=== PATIENT | female | born 1970 | race Caucasian/White ===

== ENCOUNTER → 2016-09-29 | Outpatient (CLI) | payer BC ==
[~2016-09-29] MED LIST: LISI-729 PO; PANT40TA PO; SERT50TA PO; TRAZ50TA35 PO
--- NOTE | 2016-09-29 15:48 | MAMMOGRAPHY REPORT ---
BILATERAL DIGITAL SCREENING MAMMOGRAM TOMOSYNTHESIS WITH CAD: 09/29/2016 CLINICAL HISTORY: Routine screening. Patient has no complaints. TECHNIQUE: Breast tomosynthesis in addition to standard 2D mammography was performed. Current study was also evaluated with a Computer Aided Detection (CAD) system. COMPARISON: Comparison is made to exams dated: 02/19/2014 mammogram and 02/13/2013 mammogram - [facility]. BREAST COMPOSITION: The tissue of both breasts is heterogeneously dense, which may obscure small ma sses. FINDINGS: No suspicious masses, calcifications, or areas of architectural distortion are noted in e ither breast. There has been no significant interval change compared to prior exams. IMPRESSION: ACR BI-RADS CATEGORY 1: NEGATIVE There is no mammographic evidence of malignancy. A 1 year screening mammogram is recommended. The p atient will receive written notification of the results. Approximately 10% of breast cancers are not detected with mammography. A negative mammographic repor t should not delay biopsy if a clinically suggestive mass is present. Valeria Oshea M.D. ah/:09/29/2016 15:25:22 Vp Care Management: Stephanie Stewart RT(R)(M), [facility] letter sent: Normal 1/2 BI-RADS Code: ACR BI-RADS Category 1: Negative
== END | disposition home or self-care (01) ==
LOC: C.MAMM 14:52
PROVIDERS: ATTEND Obstetrics & Gynecology
DX: Z12.31 Encounter for screening mammogram for malignant neoplasm of breast (principal)

== ENCOUNTER → 2016-10-19 | Outpatient (CLI) | payer BC ==
--- NOTE | 2016-10-19 15:26 | DIAGNOSTIC IMAGING REPORT ---
CERVICAL SPINE 3 VIEWS CLINICAL HISTORY: Neck pain. FINDINGS: AP, lateral, and odontoid views of the cervical spine are obtained. No prior studies are available for comparison at the time of dictation. The skeletal structures are well mineralized. There is no radiographic evidence of fracture or subluxation. The odontoid process and lateral masses appear intact on the open mouth view. The spinolaminar line is preserved. Vertebral body height and alignment are maintained. There is straightening of the cervical lordosis with mild reversal centered at C5. Small anterior osteophytes are seen at C5-C6. The spinous processes appear intact. There is mild age of disc space narrowing at C5-C6 and C6-C7. The remaining intervertebral disc spaces are normal. A small posterior disc osteophyte complex at C5-C6 may contribute to mild acquired compromise of the central canal. The prevertebral soft tissues are within normal limits. Visualized apical lung parenchyma appears clear. IMPRESSION: 1. There is no acute bony abnormality seen involving the cervical spine. 2. Mild spondylotic change as above, greatest at C5-C6. Electronically signed by: Solomon Rosas M.D. 10/19/2016 3:24 PM Dictated Date/Time: 10/19/2016 3:22 PM
--- NOTE | 2016-10-19 15:28 | DIAGNOSTIC IMAGING REPORT ---
L-SPINE MIN 4 VIEWS ROUTINE CLINICAL HISTORY: Low back pain. Leg numbness. COMPARISON: None FINDINGS: There are cholecystectomy clips. No acute fracture is identified. A transitional vertebra is noted at the lumbosacral junction which is designated as L5 on this exam. When utilizing this numbering scheme, there is a left-sided rudimentary rib at the T12 level. There are 6 lumbar type vertebra. Sacroiliac joints are intact. There is mild levoscoliosis at the lumbosacral junction. There is mild disc space narrowing at L5-S1. IMPRESSION: 1. Mild multilevel degenerative disc disease of the lumbar spine. 2. Transitional vertebra at the lumbosacral junction which is designated as L5 on this exam. Please see above numbering scheme the lumbar spine. 3. Mild levoscoliosis at the lumbosacral junction. 4. No acute fracture. Electronically signed by: Eduardo Courtney M.D. 10/19/2016 3:27 PM Dictated Date/Time: 10/19/2016 3:24 PM
[2016-10-19 16:46] LABS: BASO % 0.4 %; BASO ABS # 0.03 K/uL (0-0.2); COMPLETE YES; EOS % 1.2 %; HEMATOCRIT 35.4 % (37-47); IG% 0.1 %; LYMPH % 38.7 %; LYMPH ABS # 2.95 K/uL (1.2-3.4); MEAN CELL VOLUME 88.5 fL (80-100); MEAN PLATELET VOLUME 9.9 fL (7.4-10.4); MONO % 5.8 %; NEUT % 53.8 %; PLATELET COUNT 266 K/uL (130-400); WHITE BLOOD COUNT 7.62 K/uL (4.8-10.8)
[2016-10-19 16:58] LABS: BLOOD UREA NITROGEN 14 mg/dl (7-18); BUN/CREATININE RATIO 18.7 (10-20); CARBON DIOXIDE 24 mmol/L (21-32); CHLORIDE 106 mmol/L (98-107); CREATININE 0.75 mg/dl (0.60-1.20); GLUCOSE 86 mg/dl (70-99); POTASSIUM 3.7 mmol/L (3.5-5.1); SODIUM 140 mmol/L (136-145)
[2016-10-19 17:08] LABS: THYROID STIMULATING HORMONE 0.914 uIu/ml (0.300-4.500)
[2016-10-19 20:37] LABS: LYME DISEASE AB IGG NEG (NEG); LYME DISEASE AB IGM NEG (NEG)
--- NOTE | 2016-10-24 05:53 | CODING QUERY MEDICAL NECESSITY ---
SUPPORTING DIAGNOSIS NEEDED A supporting diagnosis is required for the test/procedure performed on this patient in order for us to be reimbursed by the patient's insurance. Please provide a supporting diagnosis for the following test/procedure listed below next to the test name along with your signature. *If there is no additional diagnosis for this patient that would support the following test/procedure please document that below next to the test/procedure DATE OF SERVICE: 10/19/16 Test(s)/Procedure(s) that require a supporting diagnosis: * VITAMIN D 25 HYDROXY DIAGNOSIS: Provider Signature: Date: [facility] you [facility] Once completed, please kindly fax back to [phone] For questions please call [phone]
== END | disposition home or self-care (01) ==
LOC: C.RAD1850 14:50
PROVIDERS: ATTEND Family Medicine
DX: M51.36 Other intervertebral disc degeneration, lumbar region (principal); M47.812 Spondylosis without myelopathy or radiculopathy, cervical region; I10 Essential (primary) hypertension; R20.2 Paresthesia of skin

== ENCOUNTER 2017-03-01 09:30 | Emergency (ER) | payer BC ==
[~2017-03-01] VITALS: Ht 160 cm; Wt 64.8 kg
[2017-03-01 09:34] VITALS: TEMP 36.6; Ht 160 cm; Wt 64.8 kg
[2017-03-01] MEDS ORDERED: ONDANSETRON INJ 2 MG/ML 2 ML VIAL IV STA (10:35)
[2017-03-01] MEDS ORDERED: SODIUM CHLORIDE 0.9% 1000ML 1,000 ML IV STA (10:35)
[2017-03-01] MEDS ORDERED: HYDROmorphone INJ 1 MG/ML SYR IV STA (10:35)
--- NOTE | 2017-03-01 10:44 | EMERGENCY ROOM VISIT NOTE ---
History Report prepared by Pooja: Shanenn Wheat Under the Supervision of: Dr. Ashley Mishra M.D. First contact with patient: 10:13 Chief Complaint: PAIN (GENERALIZED) Stated Complaint: SEVERE PELVIC PAIN/PRESSURE, CHEST PAIN History of Present Illness The patient is a 46 year old female who presents to the Emergency Room with complaints of constant pelvic pain and pressure beginning 2 weeks ago. The patient states that she has been having pelvic pain and pressure that is worse on the right side. She notes that when it started she had her period and thought that her pain could be cramping from her menstrual cycle. She reports that after her period ended her symptoms persisted. The patient complains of a weight gain of 2 pounds in 3 days and she notes that she has not been eating much. She notes that she has had bloating and chest pain that began this morning. She also states that she has been having pain and bleeding with intercourse that is new. She denies any urinary symptoms, fever, diarrhea, vaginal discharge, and bloody stools. The patient states that she has not had a bowel movement today. She reports that she took ibuprofen this morning. She notes that she has an appointment with her OBGYN tomorrow. Source of History: patient Onset: 2 weeks ago Position: pelvis Quality: pressure Timing: constant Associated Symptoms: + chest pain, No fevers, No diarrhea, No urinary symptoms Note: Pt complains of vaginal bleeding and pain with intercourse and bloating. She denies any bloody stools. Review of Systems See HPI for pertinent positives & negatives. A total of 10 systems reviewed and were otherwise negative. Past Medical & Surgical Medical Problems: (1) ACL surgery (2) Bronchitis (3) Cyst - pilonidal (4) Depression (5) Pneumonia Family History Cancer Hypertension Social History Smoking Status: Never Smoker Alcohol Use: occasionally Marital Status: Housing Status: lives with family Occupation Status: employed Current/Historical Medications Scheduled Lisinopril (Zestril), 5 MG PO DAILY Pantoprazole (Protonix), 40 MG PO DAILY Sertraline (Zoloft), 50 MG PO DAILY Scheduled PRN Trazodone Hcl (Trazodone), 25 MG PO HS PRN for Sleep Allergies Coded Allergies: Sulfa Drugs (Verified Allergy, Severe, TONGUE SWELLING, 03/01/17) Amoxicillin (Verified Adverse Reaction, Severe, GI SYMPTOMS - C DIFF, ) CAUSED C DIFF Clavulanic Acid (Verified Adverse Reaction, Intermediate, GI SYMPTOMS - C DIFF, 03/01/17) CAUSED C DIFF Erythromycin (Verified Adverse Reaction, Intermediate, STOMACH PAINS VOMITING, 03/01/17) Physical Exam Vital Signs Date Time Temp Pulse Resp B/P (MAP) Pulse Ox O2 Delivery O2 Flow Rate FiO2 03/01/17 14:30 67 16 137/96 96 Room Air 03/01/17 13:25 60 16 125/74 03/01/17 11:48 58 16 136/90 99 Room Air 03/01/17 09:34 36.6 65 18 155/91 100 Room Air Physical Exam Vital signs reviewed. General: Well-appearing, in no significant distress. HEENT: No scleral icterus, PERRLA, neck supple. Atraumatic. Cardiovascular: Regular rate and rhythm, no extra sounds. Pulmonary: Clear to auscultation bilaterally, normal work of breathing. Abdomen: Soft, lower abdominal tenderness, no rebound or guarding, nondistended , positive bowel sounds. Pelvic: Deferred Musculoskeletal: Atraumatic, no peripheral edema. Neurologic: Patient awake alert and oriented x 3. Skin: Warm, dry, no rash Medical Decision & Procedures ER Provider Diagnostic Interpretation: Radiology results as stated below per my review and radiologist interpretation: ULTRASOUND OF THE PELVIS FINDINGS: Uterus: The uterus is normal in size and echotexture, measuring 9.0 x 5.2 x 6.3 cm. Tiny nabothian cysts are noted in the cervix. Endometrium: The endometrium is normal in appearance, and the endometrial stripe is normal in thickness measuring up to 0.9 cm. Ovaries: The ovaries are normal in size and morphology. The right ovary measures 6.0 x 3.2 x 4.2 cm and the left ovary measures 3.8 x 2.8 x 2.7 cm. There are 2 dominant follicles in the right ovary measuring up to 3.3 cm. Additional follicles are seen in the left ovary. Normal Doppler waveforms are shown within both ovaries. Pelvis: There is no free fluid in the cul-de-sac. No concerning adnexal lesion is seen. IMPRESSION: 1. No acute sonographic abnormality is identified in the pelvis. 2. There are 2 dominant follicles in the right ovary measuring up to 3.3 cm. Electronically signed by: Solomon Rosas M.D. 03/01/2017 1:30 PM Dictated Date/Time: 03/01/2017 1:[address] SCAN OF THE ABDOMEN AND PELVIS WITH IV CONTRAST FINDINGS: Lung bases: The heart is normal in size and without pericardial effusion. The lung bases are clear. Liver: The contrast-enhanced liver is normal in size, contour, and attenuation. There is mild central intrahepatic biliary ductal dilatation. The hepatic veins and portal veins are patent. Gallbladder: Surgically absent noting clips in the gallbladder fossa. Spleen: Normal in size and attenuation. Pancreas: Unremarkable. Adrenal glands: Unremarkable. Kidneys: The contrast enhanced kidneys are normal in size and without hydronephrosis. The kidneys enhance symmetrically. Abdominal vasculature: The abdominal aorta is normal in course and caliber. Bowel: The small bowel and colon are normal in course and caliber. There is moderate colonic fecal retention. The appendix is well-visualized and normal. Peritoneum: There is no intraperitoneal free air or abdominal ascites. There is a small fat-containing umbilical hernia. Lymphadenopathy: None. Pelvic viscera: The bladder is decompressed and grossly unremarkable. The uterus and and adnexa are normal as visualized. Dominant follicles are identified in the right ovary and measure up to 3.4 cm. There is trace free fluid in the cul-de-sac. Skeletal structures: Sclerotic change is noted in the sacroiliac joints and pubic symphysis. Scattered bone islands are seen in the pelvis. No lytic or blastic lesions are seen. There is a right-sided pars defect at L5. IMPRESSION: 1. There are no acute infectious or inflammatory findings in the abdomen or pelvis. 2. Moderate constipation. No bowel obstruction is seen. 3. Dominant follicles are identified in the right ovary. These were better characterized on today's pelvic ultrasound. 4. There is trace and likely physiologic free fluid in the cul-de-sac. Electronically signed by: Solomon Rosas M.D. 03/01/2017 2:19 PM Dictated Date/Time: 03/01/2017 2:14 PM Laboratory Results 03/01/17 09:50 Red Blood Count 4.28, Mean Corpuscular Volume 89.3, Mean Corpuscular Hemoglobin 28.7, Mean Corpuscular Hemoglobin Concent 32.2, Mean Platelet Volume 9.8, Neutrophils (%) (Auto) 51.6, Lymphocytes (%) (Auto) 38.1, Monocytes (%) (Auto) 7.8, Eosinophils (%) (Auto) 1.8, Basophils (%) (Auto) 0.5, Neutrophils # (Auto) 3.36, Lymphocytes # (Auto) 2.48, Monocytes # (Auto) 0.51, Eosinophils # (Auto) 0.12, Basophils # (Auto) 0.03 03/01/17 09:50 Test 03/01/17 09:50 03/01/17 10:50 White Blood Count 6.51 K/uL (4.8-10.8) Red Blood Count 4.28 M/uL (4.2-5.4) Hemoglobin 12.3 g/dL (12.0-16.0) Hematocrit 38.2 % (37-47) Mean Corpuscular Volume 89.3 fL (80-100) Mean Corpuscular Hemoglobin 28.7 pg (25-34) Mean Corpuscular Hemoglobin Concent 32.2 g/dl (32-36) Platelet Count 312 K/uL (130-400) Mean Platelet Volume 9.8 fL (7.4-10.4) Neutrophils (%) (Auto) 51.6 % Lymphocytes (%) (Auto) 38.1 % Monocytes (%) (Auto) 7.8 % Eosinophils (%) (Auto) 1.8 % Basophils (%) (Auto) 0.5 % Neutrophils # (Auto) 3.36 K/uL (1.4-6.5) Lymphocytes # (Auto) 2.48 K/uL (1.2-3.4) Monocytes # (Auto) 0.51 K/uL (0.11-0.59) Eosinophils # (Auto) 0.12 K/uL (0-0.5) Basophils # (Auto) 0.03 K/uL (0-0.2) RDW Standard Deviation 40.4 fL (36.4-46.3) RDW Coefficient of Variation 12.5 % (11.5-14.5) Immature Granulocyte % (Auto) 0.2 % Immature Granulocyte # (Auto) 0.01 K/uL (0.00-0.02) Anion Gap 6.0 mmol/L (3-11) Est Creatinine Clear Calc Drug Dose 84.2 ml/min Estimated GFR () 111.0 Estimated GFR (Non- 95.8 BUN/Creatinine Ratio 23.2 (10-20) Calcium Level 8.6 mg/dl (8.5-10.1) Total Bilirubin 0.3 mg/dl (0.2-1) Direct Bilirubin 0.1 mg/dl (0-0.2) Aspartate Amino Transf (AST/SGOT) 27 U/L (15-37) Alanine Aminotransferase (ALT/SGPT) 32 U/L (12-78) Alkaline Phosphatase 48 U/L (45-117) Total Protein 7.4 gm/dl (6.4-8.2) Albumin 3.9 gm/dl (3.4-5.0) Lipase 206 U/L (73-393) Urine Color YELLOW Urine Appearance CLEAR (CLEAR) Urine pH 6.0 (4.5-7.5) Urine Specific [place] 1.009 (1.000-1.030) Urine Protein NEG (NEG) Urine Glucose (UA) NEG (NEG) Urine Ketones NEG (NEG) Urine Occult Blood TRACE (NEG) Urine Nitrite NEG (NEG) Urine Bilirubin NEG (NEG) Urine Urobilinogen NEG (NEG) Urine Leukocyte Esterase NEG (NEG) Urine WBC (Auto) 0 /hpf (0-5) Urine RBC (Auto) 0-4 /hpf (0-4) Urine Hyaline Casts (Auto) 0 /lpf (0-5) Urine Epithelial Cells (Auto) 0-5 /lpf (0-5) Urine Bacteria (Auto) NEG (NEG) Laboratory results per my review. Medications Administered Medications (Trade) Dose Ordered Sig/Nithya Route Start Time Stop Time Status Last Admin Dose Admin Sodium Chloride 1,000 ml @ 125 mls/hr Q8H STAT IV 03/01/17 10:35 03/01/17 15:16 DC 03/01/17 10:46 125 MLS/HR Hydromorphone HCl (Dilaudid Inj) 1 mg NOW STAT IV 03/01/17 10:35 03/01/17 10:40 DC 03/01/17 10:46 1 MG Ondansetron HCl (Zofran Inj) 4 mg NOW STAT IV 03/01/17 10:35 03/01/17 10:40 DC 03/01/17 10:46 4 MG ED Course 1013: Past medical records reviewed. The patient was evaluated in room B11. A complete history and physical examination was performed. 1035: Zofran Inj 4mg IV, Dilaudid 1mg IV, Sodium Chloride 1000 ml @ 125 mls/hr IV. 1444: I reevaluated and updated the patient. She declined a pelvic exam because she sees Dr. Franz tomorrow. 1448: Upon reevaluation, the patient appeared to have improvement of her symptoms. I discussed findings with the patient. She verbalized agreement of the treatment plan. The patient was discharged home. Medical Decision Differential diagnosis includes ovarian cyst, ovarian torsion, ectopic , endometrial hypoplasia, malignancy, appendicitis, diverticulitis. Medication Reconciliation: I attest that I have personally reviewed the patient' s current medication list. Blood Pressure Screening: Patient was found to have a slightly elevated blood pressure and this is known. She follows this with her PCP. This pt was evaluated and appeared to be in no distress. IV access was obtained and lab work was drawn. Pt was hydrated with NSS, given IV dilaudid and zofran. US pelvis was performed and reveals some dominant ovarian follicles , not acute abnl. CT abd and pelvis is significant for moderate constipation, no acute infectious or inflammatory abnl. UA is negative. Pt was offered a pelvic exam, but deferred as she has an appt with OBGYN tomorrow. She was d/c, asked to use ibuprofen and prn norco for pain. Pt was advised not to drive or take tylenol with this medication. She will return to the ED for worsening of symptoms or any medical concerns. Impression Primary Impression: Pelvic pain Additional Impression: Constipation Scribe Attestation The scribe's documentation has been prepared under my direction and personally reviewed by me in its entirety. I confirm that the note above accurately reflects all work, treatment, procedures, and medical decision making performed by me. Departure Information Dispostion Home / Self-Care Referrals Nicole Paris DO (PCP) Forms HOME CARE DOCUMENTATION FORM, IMPORTANT VISIT INFORMATION, WORK / SCHOOL INSTRUCTIONS Patient Instructions [facility] Additional Instructions Diagnosis: Pelvic pain, constipation MiraLAX 1 capful daily for constipation. Increase the fiber and water in your diet. Follow-up with Dr. Franz of [facility] tomorrow as scheduled. Follow-up with her primary care physician for reevaluation and consideration of gastroenterology follow-up. Return to the ER for worsening of symptoms or any medical concerns. Problem Qualifiers
[2017-03-01 10:59] LABS: URINE APPEARANCE CLEAR (CLEAR); URINE BILIRUBIN NEG (NEG); URINE COLOR YELLOW; URINE EPITHELIAL CELL AUTO 0-5 /lpf (0-5); URINE NITRITE NEG (NEG); URINE SPECIFIC GRAVITY 1.009 (1.000-1.030); UROBILINOGEN NEG (NEG); ZZUR CULT IF INDIC CLEAN CATCH NO
[2017-03-01 11:11] LABS: MANUAL MICROSCOPIC REQUIRED? NO; REVIEW REQ? NO
[2017-03-01 11:42] LABS: BASO % 0.5 %; BASO ABS # 0.03 K/uL (0-0.2); COMPLETE YES; EOS % 1.8 %; HEMATOCRIT 38.2 % (37-47); IG% 0.2 %; LYMPH % 38.1 %; LYMPH ABS # 2.48 K/uL (1.2-3.4); MEAN CELL VOLUME 89.3 fL (80-100); MEAN CORPUSCULAR HEMOGLOBIN 28.7 pg (25-34); MEAN CORPUSCULAR HGB CONC 32.2 g/dl (32-36); MEAN PLATELET VOLUME 9.8 fL (7.4-10.4); MONO % 7.8 %; NEUT % 51.6 %; PLATELET COUNT 312 K/uL (130-400); RED BLOOD COUNT 4.28 M/uL (4.2-5.4); WHITE BLOOD COUNT 6.51 K/uL (4.8-10.8)
[2017-03-01 11:48] LABS: BUN/CREATININE RATIO 23.2 (10-20); CALCIUM 8.6 mg/dl (8.5-10.1); CREATININE 0.74 mg/dl (0.60-1.20)
--- NOTE | 2017-03-01 13:31 | DIAGNOSTIC IMAGING REPORT ---
ULTRASOUND OF THE PELVIS CLINICAL HISTORY: Pelvic bloating. Dysfunctional bleeding. COMPARISON STUDY: Pelvic CT dated 12/10/2012. TECHNIQUE: Real-time, grayscale, and color flow sonography of the pelvis is performed both transabdominally and endovaginally. Images are reviewed in the transverse and longitudinal planes. FINDINGS: Uterus: The uterus is normal in size and echotexture, measuring 9.0 x 5.2 x 6.3 cm. Tiny nabothian cysts are noted in the cervix. Endometrium: The endometrium is normal in appearance, and the endometrial stripe is normal in thickness measuring up to 0.9 cm. Ovaries: The ovaries are normal in size and morphology. The right ovary measures 6.0 x 3.2 x 4.2 cm and the left ovary measures 3.8 x 2.8 x 2.7 cm. There are 2 dominant follicles in the right ovary measuring up to 3.3 cm. Additional follicles are seen in the left ovary. Normal Doppler waveforms are shown within both ovaries. Pelvis: There is no free fluid in the cul-de-sac. No concerning adnexal lesion is seen. IMPRESSION: 1. No acute sonographic abnormality is identified in the pelvis. 2. There are 2 dominant follicles in the right ovary measuring up to 3.3 cm. Electronically signed by: Solomon Rosas M.D. 03/01/2017 1:30 PM Dictated Date/Time: 03/01/2017 1:29 PM
--- NOTE | 2017-03-01 14:20 | DIAGNOSTIC IMAGING REPORT ---
CT SCAN OF THE ABDOMEN AND PELVIS WITH IV CONTRAST CLINICAL HISTORY: Generalized abdominal pain. Bloating. Pelvic pressure. COMPARISON STUDY: Abdominal CT dated 12/10/2012. Pelvic ultrasound dated 03/01/2017. TECHNIQUE: Following the IV administration of 118 cc of Optiray 320, CT scan of the abdomen and pelvis is performed from the lung bases to the proximal femora. Images are reviewed in the axial, sagittal, and coronal planes. IV contrast was administered without complication. Automated dose control exposure was utilized. CT DOSE: 305.38 mGy.cm FINDINGS: Lung bases: The heart is normal in size and without pericardial effusion. The lung bases are clear. Liver: The contrast-enhanced liver is normal in size, contour, and attenuation. There is mild central intrahepatic biliary ductal dilatation. The hepatic veins and portal veins are patent. Gallbladder: Surgically absent noting clips in the gallbladder fossa. Spleen: Normal in size and attenuation. Pancreas: Unremarkable. Adrenal glands: Unremarkable. Kidneys: The contrast enhanced kidneys are normal in size and without hydronephrosis. The kidneys enhance symmetrically. Abdominal vasculature: The abdominal aorta is normal in course and caliber. Bowel: The small bowel and colon are normal in course and caliber. There is moderate colonic fecal retention. The appendix is well-visualized and normal. Peritoneum: There is no intraperitoneal free air or abdominal ascites. There is a small fat-containing umbilical hernia. Lymphadenopathy: None. Pelvic viscera: The bladder is decompressed and grossly unremarkable. The uterus and and adnexa are normal as visualized. Dominant follicles are identified in the right ovary and measure up to 3.4 cm. There is trace free fluid in the cul-de-sac. Skeletal structures: Sclerotic change is noted in the sacroiliac joints and pubic symphysis. Scattered bone islands are seen in the pelvis. No lytic or blastic lesions are seen. There is a right-sided pars defect at L5. IMPRESSION: 1. There are no acute infectious or inflammatory findings in the abdomen or pelvis. 2. Moderate constipation. No bowel obstruction is seen. 3. Dominant follicles are identified in the right ovary. These were better characterized on today's pelvic ultrasound. 4. There is trace and likely physiologic free fluid in the cul-de-sac. Electronically signed by: Solomon Rosas M.D. 03/01/2017 2:19 PM Dictated Date/Time: 03/01/2017 2:14 PM
[2017-03-01 14:30] VITALS: BP 137/96; PULSE 67; O2SAT 96
== END 2017-03-01 15:00 | disposition home or self-care (01) ==
LOC: C.EDB 09:31
DX: R10.2 Pelvic and perineal pain (principal); K59.00 Constipation, unspecified; F32.9 Major depressive disorder, single episode, unspecified; Z98.890 Other specified postprocedural states; Z79.899 Other long term (current) drug therapy; Z88.1 Allergy status to other antibiotic agents; Z88.2 Allergy status to sulfonamides; Z88.8 Allergy status to other drugs, medicaments and biological substances; Z80.9 Family history of malignant neoplasm, unspecified; Z82.49 Family history of ischemic heart disease and other diseases of the circulatory system

== ENCOUNTER → 2017-03-02 | Outpatient (CLI) | payer BC | END | disposition home or self-care (01) | LOC: C.PAPS 13:40 | PROVIDERS: ATTEND Obstetrics & Gynecology | DX: Z12.4 Encounter for screening for malignant neoplasm of cervix (principal) ==

== ENCOUNTER → 2017-10-12 | Outpatient (CLI) | payer OTHER ==
[2017-10-12 12:32] LABS: BASO % 0.6 %; BASO ABS # 0.04 K/uL (0-0.2); EOS % 1.2 %; EOS ABS # 0.08 K/uL (0-0.5); HEMATOCRIT 31.7 % (37-47); HEMOGLOBIN 10.6 g/dL (12.0-16.0); IG# 0.01 K/uL (0.00-0.02); LYMPH % 46.1 %; LYMPH ABS # 2.98 K/uL (1.2-3.4); MEAN CELL VOLUME 85.4 fL (80-100); MEAN CORPUSCULAR HEMOGLOBIN 28.6 pg (25-34); MEAN CORPUSCULAR HGB CONC 33.4 g/dl (32-36); MEAN PLATELET VOLUME 10.4 fL (7.4-10.4); MONO ABS # 0.45 K/uL (0.11-0.59); NEUT % 44.9 %; NEUT ABS # 2.91 K/uL (1.4-6.5); PLATELET COUNT 322 K/uL (130-400); RED CELL DISTRIBUTION WIDTH CV 12.7 % (11.5-14.5); RED CELL DISTRIBUTION WIDTH SD 39.3 fL (36.4-46.3); WHITE BLOOD COUNT 6.47 K/uL (4.8-10.8)
[2017-10-12 15:47] LABS: ALBUMIN 3.7 gm/dl (3.4-5.0); ALT/SGPT 22 U/L (12-78); AST/SGOT 15 U/L (15-37); BLOOD UREA NITROGEN 11 mg/dl (7-18); CALCIUM 9.1 mg/dl (8.5-10.1); CARBON DIOXIDE 24 mmol/L (21-32); CREATININE 0.67 mg/dl (0.60-1.20); GLUCOSE 85 mg/dl (70-99); POTASSIUM 3.9 mmol/L (3.5-5.1); SODIUM 139 mmol/L (136-145); TOTAL PROTEIN 7.3 gm/dl (6.4-8.2)
[2017-10-12 15:49] LABS: ALKALINE PHOSPHATASE 46 U/L (45-117)
== END | disposition home or self-care (01) ==
LOC: C.LAB1850 11:29
PROVIDERS: ATTEND Family Medicine
DX: R53.83 Other fatigue (principal); N93.8 Other specified abnormal uterine and vaginal bleeding

== ENCOUNTER → 2017-12-26 | Outpatient (CLI) | payer OTHER ==
--- NOTE | 2017-12-27 14:43 | MAMMOGRAPHY REPORT ---
BILATERAL DIGITAL SCREENING MAMMOGRAM TOMOSYNTHESIS WITH CAD: 12/26/2017 CLINICAL HISTORY: Routine screening. TECHNIQUE: Breast tomosynthesis in addition to standard 2D mammography was performed. Current study was also evaluated with a Computer Aided Detection (CAD) system. COMPARISON: Comparison is made to exams dated: 09/29/2016 mammogram, 02/19/2014 mammogram, 02/13/2013 ma mmogram - [facility], 11/01/2009 mammogram, and 10/30/2008 mammogram. BREAST COMPOSITION: The tissue of both breasts is heterogeneously dense, which may obscure small mas ses. FINDINGS: No suspicious masses, calcifications, or areas of architectural distortion are noted in ei ther breast. There has been no significant interval change compared to prior exams. Asymmetry in the right lateral posterior breast is stable compared to prior exams including the 2013 and 2012 exams. IMPRESSION: ACR BI-RADS CATEGORY 2: BENIGN There is no mammographic evidence of malignancy. A 1 year screening mammogram is recommended. The pa tient will receive written notification of the results. Approximately 10% of breast cancers are not detected with mammography. A negative mammographic report should not delay biopsy if a clinically suggestive mass is present. Valeria Oshea M.D. ah/:12/27/2017 07:34:22 Copy Cutter: Carlos MUNSON(R)([place]), [facility] letter sent: Normal 1/2 BI-RADS Code: ACR BI-RADS Category 2: Benign
== END | disposition home or self-care (01) ==
LOC: C.MAMM 17:18
PROVIDERS: ATTEND Obstetrics & Gynecology
DX: Z12.31 Encounter for screening mammogram for malignant neoplasm of breast (principal)

== ENCOUNTER → 2018-01-21 | Outpatient (CLI) | payer OTHER ==
[~2018-01-21] MED LIST changes: +FERR1TAB23 PO; +MULT-506 PO
[2018-01-21 16:03] LABS: BASO % 0.4 %; BASO ABS # 0.03 K/uL (0-0.2); EOS % 1.9 %; EOS ABS # 0.16 K/uL (0-0.5); HEMATOCRIT 36.3 % (37-47); HEMOGLOBIN 12.5 g/dL (12.0-16.0); IG# 0.02 K/uL (0.00-0.02); LYMPH % 37.7 %; MEAN CELL VOLUME 86.2 fL (80-100); MEAN CORPUSCULAR HEMOGLOBIN 29.7 pg (25-34); MEAN CORPUSCULAR HGB CONC 34.4 g/dl (32-36); MEAN PLATELET VOLUME 9.9 fL (7.4-10.4); MONO % 6.3 %; MONO ABS # 0.53 K/uL (0.11-0.59); NEUT % 53.5 %; NEUT ABS # 4.54 K/uL (1.4-6.5); PLATELET COUNT 272 K/uL (130-400); RED CELL DISTRIBUTION WIDTH CV 14.1 % (11.5-14.5); RED CELL DISTRIBUTION WIDTH SD 44.7 fL (36.4-46.3); WHITE BLOOD COUNT 8.48 K/uL (4.8-10.8)
== END | disposition home or self-care (01) ==
LOC: C.LAB1850 14:37
PROVIDERS: ATTEND Obstetrics & Gynecology
DX: Z01.818 Encounter for other preprocedural examination (principal)

== ENCOUNTER → 2018-01-28 | Day surgery (SDC) | payer OTHER ==
[2018-01-22 14:54] VITALS: Ht 160 cm; Wt 64.1 kg
--- NOTE | 2018-01-25 10:44 | HISTORY & PHYSICAL EXAMINATION ---
DATE OF ADMISSION: 01/28/2018 The patient is for surgery on 01/28/2018. CHIEF COMPLAINT: Heavy menstrual bleeding. HISTORY OF PRESENT ILLNESS: The patient is a 47-year-old white female, 4, para 2-0-2-2. The patient has been having intermittent heavy menses where she changes a tampon every hour. She has been found to be anemic. Due to an elevated blood pressure, she is not a good candidate for combination oral contraceptives. She has tried norethindrone progestin only pills without success. The patient also declines other progestin only contraceptives for treatment. We have discussed her surgical options including hysterectomy. She prefers to avoid hysterectomy if possible. Pap smear was done in February 2017 and this was negative. Ultrasound was done on 09/2017 and this showed a normal size uterus with an endometrial lining of 4.1 mm. Left ovary was normal. She had 2 small simple cysts on her right ovary. ALLERGIES: THE PATIENT IS ALLERGIC TO SULFA MEDICATIONS, ERYTHROMYCIN DERIVATIVES, AND ALSO REPORTS AN ALLERGY TO AUGMENTIN. PAST MEDICAL ILLNESSES: History of anemia. Also, hypertension. In addition, depression. PAST SURGICAL HISTORY: She has undergone laparoscopic cholecystectomy. She has also had an ACL repair. FAMILY HISTORY: Her mother has a history of hypertension and asthma. Her sister has irritable bowel syndrome. SOCIAL HISTORY: The patient is . She denies smoking cigarettes. She does report drinking alcohol on a weekly basis. PHYSICAL EXAMINATION: VITAL SIGNS: The patient is 5 foot 3 inches tall, weighs 143 pounds, her blood pressure is 128/70. HEENT: Grossly within normal limits. NECK: Supple without masses. CHEST: Her lungs are clear without wheezing. HEART: Regular rate and rhythm. No murmurs, gallops, or rubs. ABDOMEN: Soft and nontender with no masses palpated. PELVIC: External genitalia normal. Vagina pink and stimulated. Cervix pink and closed with no lesions visible. Uterus within normal limit size, nontender. Adnexa nontender with no masses palpable. EXTREMITIES: No cyanosis, clubbing, or edema. IMPRESSION: A 47-year-old white female 4, para 2 with history of menorrhagia. PLAN: The patient is for hysteroscopic-guided endometrial ablation by roller ball or NovaSure method with or without dilation and curettage, with or without removal of endometrial polyp/lesion. The patient is aware of the risks of infection, bleeding, perforation of the uterus, failure to improve the bleeding and risks of anesthesia. The patient wishes to proceed with the surgery. MIRANDA
[~2018-01-28] VITALS: Ht 160 cm; Wt 64.1 kg
[~2018-01-28] MED LIST changes: +ATROPINE SULFATE 0.1 MG/ML 5ML SYR IV PRN; +DEXAMETHASONE SOD INJ 4 MG/ML VIAL ONE; +EpHEDrine SULFATE INJ 50 MG/ML AMP IV PRN; +FENTANYL CITRATE INJ 50 MCG/1 ML 2 ML VIAL IV PRN; +FENTANYL CITRATE INJ 50 MCG/1 ML 2 ML VIAL ONE; +IBUPROFEN 600 MG TAB PO PRN; +KETOROLAC TROMETHAMINE 30 MG/ML VIAL ONE; +LACTATED RINGER'S 1000ML 1,000 ML IV SCH; +LIDOCAINE HCL 2% 2 ML VIAL (20MG/ML) ONE; +MIDAZOLAM HCL 1 MG/ML 2ML VIAL ONE; +ONDANSETRON INJ 2 MG/ML 2 ML VIAL IV PRN; +ONDANSETRON INJ 2 MG/ML 2 ML VIAL ONE; +PROPOFOL IV EMULSION 10 MG/ML 20 ML VIAL ONE; +SODIUM CHLORIDE 0.9% 1000ML 1,000 ML IV SCH
--- NOTE | 2018-01-28 08:46 | History & Physical Bridge - SC ---
H&P Re-Evaluation Bridge Note: I have examined the patient, reviewed the History & Physical and in the interval since the performance of the History & Physical I have noted the following changes of clinical significance: No changes noted
--- NOTE | 2018-01-28 09:43 | Discharge Instructions-SurgCtr ---
Discharge Instructions Date of Service January 28, 2018. Visit Reason for Visit: Menorrhagia, Anemia Discharge Discharge Diagnosis / Problem: S/P Hysteroscopy, D&C, Novasure endometrial ablation Discharge Goals Goal(s): Diagnostic testing, Therapeutic intervention Activity Recommendations Activity Limitations: per Instructions/Follow-up section Anesthesia . Post Anesthesia Instructions: If you have had General Anesthesia or IV Sedation: * Do not drive today. * Resume driving when surgeon permits. * Do not make important decisions or sign legal documents today. * Call surgeon for: 1. Temperature elevations greater than 101 degrees F. 2. Uncontrollable pain. 3. Excessive bleeding. 4. Persistent nausea and vomiting. 5. Medication intolerance (nausea, vomiting or rash). * For nausea and vomiting use only clear liquids such as: tea, soda, bouillon until nausea subsides, then gradually increase diet as tolerated. * If you have any concerns or questions, call your surgeon's office. If physician is unavailable and it is an emergency, call 911 or go to the nearest emergency room. . Instructions / Follow-Up Instructions / Follow-Up ACTIVITY RECOMMENDATIONS: * Avoid tampons, douching, hot tubs, pools, and intercourse until bleeding has stopped. * May shower as usual. * No strenuous activity for 24-48 hours. After 24-48 hours, you may do anything you feel like doing (driving and sports are okay). SPECIAL CARE INSTRUCTIONS: Special Diet: * Mild nausea may occur in the immediate post-operative period. * Take clear liquids such as tea, cola or bouillon until all nausea has subsided; you may then resume your normal diet. Special Care: * Light bleeding and vaginal spotting can last from a few days to 4 or more weeks. Call your doctor if bleeding becomes heavier than the heaviest part of your period. * Check your temperature twice a day for one week. If it goes above 100.4 degrees Fahrenheit (38.0 Celsius), notify your doctor. Call if you develop a foul discharge, heavy bleeding or severe persistent cramping. * Call your doctor's office for an appointment for 4 weeks after your surgery. [phone] FOLLOW-UP VISIT: Call your doctor's office for an appointment for 6 weeks after your surgery. Diet Recommendations Home Diet: resume previous diet Procedures Procedures Performed: Dilatation And Curettage, Hysteroscopy Endometrial Ablation with Novasure Pending Studies Studies pending at discharge: yes List of pending studies: We will call you with the pathology report from tissue removed. We should have the results within a week. Medical Emergencies . Who to Call and When: Medical Emergencies: If at any time you feel your situation is an emergency, please call 911 immediately. . Non-Emergent Contact Non-Emergency issues call your: Seed Pelleter Call Non-Emergent contact if: temperature is above 100.5, your pain is worsening . . "Provider Documentation" section prepared by Celena Sloan. .
--- NOTE | 2018-01-28 09:45 | [facility] Post Operative Brief Note ---
Immediate Operative Summary Operative Date January 28, 2018. Pre-Operative Diagnosis Menorrhagia Post-Operative Diagnosis Same as pre-op Procedure(s) Performed Dilatation And Curettage, Hysteroscopy Endometrial Ablation with Novasure Surgeon Fixed Wing Aircraft Flight Engineer Surgeon(s) None Estimated Blood Loss 25ML Findings Consistent with Post-Op Diagnosis Specimens A.Endometrial curettings Drains None Anesthesia Type General Complication(s) none Disposition Disposition: Recovery Room / PACU
[2018-01-28 10:26] VITALS: TEMP 36.2
[2018-01-28 10:52] VITALS: BP 124/79; PULSE 56; O2SAT 99
--- NOTE | 2018-01-28 10:59 | Anesthesia Progress Nt - [facility] ---
Anesthesia Post Op Note Date & Time January 28, 2018 at 10:59 Vital Signs Pain Intensity: 0 Vital Signs Past 12 Hours Date Time Temp Pulse Resp B/P (MAP) Pulse Ox O2 Delivery O2 Flow Rate FiO2 01/28/18 10:52 56 16 124/79 (94) 99 Room Air 01/28/18 10:26 36.2 48 16 123/80 (94) 100 Room Air 01/28/18 10:19 36.2 52 16 127/78 100 Room Air 01/28/18 10:16 127/78 01/28/18 10:14 49 11 100 01/28/18 10:14 49 11 01/28/18 10:10 136/80 01/28/18 10:09 55 19 100 01/28/18 10:09 53 19 01/28/18 10:05 117/87 01/28/18 10:04 56 14 01/28/18 10:04 56 14 100 01/28/18 10:01 133/74 01/28/18 09:59 58 12 01/28/18 09:59 64 12 100 01/28/18 09:55 134/80 01/28/18 09:54 53 11 100 01/28/18 09:54 54 11 01/28/18 09:53 55 12 100 01/28/18 09:53 55 12 01/28/18 09:50 130/88 01/28/18 09:49 135/98 01/28/18 09:48 36.2 65 16 135/98 98 Mask 6 01/28/18 07:35 36.8 69 16 124/87 (99) 99 Room Air Notes Mental Status: alert / awake / arousable, participated in evaluation Pt Amnestic to Procedure: Yes Nausea / Vomiting: adequately controlled Pain: adequately controlled Airway Patency, RR, SpO2: stable & adequate BP & HR: stable & adequate Hydration State: stable & adequate Anesthetic Complications: no major complications apparent
--- NOTE | 2018-01-28 11:21 | OPERATIVE REPORT ---
DATE OF OPERATION: 01/28/2018 PREOPERATIVE DIAGNOSIS: Menorrhagia. POSTOPERATIVE DIAGNOSIS: Menorrhagia. PROCEDURE: Hysteroscopy, D and C, and NovaSure ablation of the endometrium. SURGEON: Celena Sloan MD ANESTHESIA: General. HEAVY DUTY TRUCK MECHANIC: Demetrio Alarcon MD DESCRIPTION OF PROCEDURE: The patient was taken to the operating room where general anesthesia was administered. After an adequate level was obtained, she was placed in dorsal lithotomy position. Vulva, vagina, and cervix were prepped with Betadine solution. The bladder was drained with the straight catheter. The anterior lip of the cervix was grasped with an Allis clamp. Weighted speculum was placed in the posterior fornix of the vagina. The uterus sounded to 8.5 cm. The cervix was dilated enough to insert a hysteroscope. The cavity was visualized and there were polypoid bits of tissue present. Curettage was then carried out. A small smooth sharp curette was used to obtain a moderate amount of tissue. Polyp forceps were also used to obtain some additional tissue. All tissue removed was sent to pathology for exam. Hysteroscope was used to visualize the cavity once more and determine the endometrial cavity depth. The cervix measured approximately 4.5 cm and therefore the cavity was 4.0 cm. NovaSure instrument was then inserted. The array was deployed. The width of the cavity was 3.1 cm. The CO2 test was then passed. The NovaSure instrument was activated for 1 minute 49 seconds. Afterwards, the NovaSure instrument was removed and hysteroscope then used to visualize the cavity again and there was good melinda noted. Estimated blood loss for the entire procedure 25 mL. The patient tolerated the procedure well and was taken to the recovery room in good condition. I attest to the content of the Intraoperative Record and any orders documented therein. Any exceptions are noted below. MIRANDA
== END | disposition home or self-care (01) ==
LOC: X.SURG 07:21
PROVIDERS: ATTEND Obstetrics & Gynecology
DX: N92.0 Excessive and frequent menstruation with regular cycle (principal); D64.9 Anemia, unspecified; I10 Essential (primary) hypertension; F32.9 Major depressive disorder, single episode, unspecified; Z88.2 Allergy status to sulfonamides; Z88.1 Allergy status to other antibiotic agents; Z90.49 Acquired absence of other specified parts of digestive tract; Z98.890 Other specified postprocedural states; Z82.5 Family history of asthma and other chronic lower respiratory diseases; Z82.49 Family history of ischemic heart disease and other diseases of the circulatory system; Z79.899 Other long term (current) drug therapy

== ENCOUNTER → 2018-05-13 | Outpatient (CLI) | payer OTHER ==
[~2018-05-13] MED LIST changes: -ATROPINE SULFATE 0.1 MG/ML 5ML SYR IV PRN; -DEXAMETHASONE SOD INJ 4 MG/ML VIAL ONE; -EpHEDrine SULFATE INJ 50 MG/ML AMP IV PRN; -FENTANYL CITRATE INJ 50 MCG/1 ML 2 ML VIAL IV PRN; -FENTANYL CITRATE INJ 50 MCG/1 ML 2 ML VIAL ONE; -IBUPROFEN 600 MG TAB PO PRN; -KETOROLAC TROMETHAMINE 30 MG/ML VIAL ONE; -LACTATED RINGER'S 1000ML 1,000 ML IV SCH; -LIDOCAINE HCL 2% 2 ML VIAL (20MG/ML) ONE; -MIDAZOLAM HCL 1 MG/ML 2ML VIAL ONE; -ONDANSETRON INJ 2 MG/ML 2 ML VIAL IV PRN; -ONDANSETRON INJ 2 MG/ML 2 ML VIAL ONE; -PROPOFOL IV EMULSION 10 MG/ML 20 ML VIAL ONE; -SODIUM CHLORIDE 0.9% 1000ML 1,000 ML IV SCH
[2018-05-13 15:57] LABS: BASO % 0.4 %; BASO ABS # 0.04 K/uL (0-0.2); EOS ABS # 0.09 K/uL (0-0.5); HEMATOCRIT 37.5 % (37-47); HEMOGLOBIN 12.8 g/dL (12.0-16.0); IG# 0.01 K/uL (0.00-0.02); LYMPH % 35.7 %; LYMPH ABS # 3.24 K/uL (1.2-3.4); MEAN CELL VOLUME 88.7 fL (80-100); MEAN CORPUSCULAR HEMOGLOBIN 30.3 pg (25-34); MEAN CORPUSCULAR HGB CONC 34.1 g/dl (32-36); MEAN PLATELET VOLUME 10.1 fL (7.4-10.4); MONO % 5.8 %; MONO ABS # 0.53 K/uL (0.11-0.59); NEUT ABS # 5.16 K/uL (1.4-6.5); PLATELET COUNT 248 K/uL (130-400); RED CELL DISTRIBUTION WIDTH SD 38.7 fL (36.4-46.3); WHITE BLOOD COUNT 9.07 K/uL (4.8-10.8)
== END | disposition home or self-care (01) ==
LOC: C.LAB1850 15:19
PROVIDERS: ATTEND Family Medicine
DX: D64.9 Anemia, unspecified (principal); E55.9 Vitamin D deficiency, unspecified

== ENCOUNTER 2019-12-22 07:32 | Observation (INO) ==
--- NOTE | 2019-12-09 15:17 | Anesthesiology Consultation ---
Date of Service December 09, 2019 Assessment & Plan (1) Encounter for pre-operative examination: Chart Review Chart Review: Acceptable Risk for Surgery (pending DOS labs ) and Patient NOT seen in Pre Admission Testing Check PRP and CBC DOS D&C, hysteroscopy, endometrial ablation 01/28/18= GA with LMA #4- smooth IV induction, LMA atraumatic. History Surgery Operation Date: 12/22/19 09:40 Proposed Procedures p Right Breast Lumpectomy with Needle Localization and with Right [place] Lymph Node Biopsy - Robbin Barrera MD, FACS Height/Weight Height: 5 ft 3 in Weight: 65.771 kg Allergies Allergy/AdvReac Type Severity Reaction Status Date / Time Sulfa (Sulfonamide Allergy Severe TONGUE Verified 12/08/19 11:21 Antibiotics) SWELLING amoxicillin AdvReac Severe GI Verified 12/08/19 11:21 SYMPTOMS - C DIFF clavulanic acid AdvReac Intermediate GI Verified 12/08/19 11:21 SYMPTOMS - C DIFF erythromycin base AdvReac Intermediate STOMACH Verified 12/08/19 11:21 PAINS VOMITING Medications Home Medications Medication Instructions Recorded Confirmed Last Taken trazodone 25 mg PO HS PRN 01/28/19 12/08/19 Unknown cholecalciferol (vitamin D3) 50 2,000 unit PO QAM #30 tab 07/04/19 12/08/19 08/30/19 mcg (2,000 unit) tablet acetylcysteine 600 mg capsule 600 mg PO QAM 07/24/19 12/08/19 08/30/19 coenzyme Q10 100 mg capsule 100 mg PO QAM 07/24/19 12/08/19 08/30/19 multivitamin 1 cap PO QAM 07/24/19 12/08/19 08/30/19 lisinopril 5 mg PO QAM 08/30/19 12/08/19 08/30/19 sertraline 50 mg PO QAM 08/30/19 12/08/19 08/30/19 Past Medical History Medical History (Updated 12/09/19 @ 15:16 by Geraldine Daly PA-C) Breast cancer RT BREAST Depression "MILD" History of anemia History of Clostridioides difficile colitis Hx of esophageal reflux Hypertension Past Family History Family History Mother Asthma Hypertension Father Hypertension Sister IBS (irritable bowel syndrome) Family/Other Lung cancer Denies family history of Ovarian cancer Diabetes Coronary heart disease Breast cancer Colonic polyp Past Surgical History Surgical History History of arthroscopy RT ACL History of breast biopsy History of cholecystectomy History of dental surgery History of tonsillectomy Hx of colonoscopy S/P endometrial ablation Social History Smoking Status: Never smoker Do You Dip or Chew Tobacco: No Hx Alcohol Use: Yes Alcohol type: beer and wine alcohol intake frequency: a few times a week Hx Substance Use: No substance use type: does not use Testing Electrocardiogram Date: 08/30/19 Findings: + NSR @ (81) Chest X-Ray Date: 08/30/19 Findings: + NAD Other Testing Chest CTA 08/30/19= No evidence of PE. Punctate calcified granuloma within the right lower lobe medially. Otherwise, lungs are clear.
[~2019-12-22 07:32] MED LIST changes: +CLINDAMYCIN 600 MG/54 ML BAG IV SCH; -FERR1TAB23 PO; -LISI-729 PO; +LR 15ML/HR IV SCH; -MULT-506 PO; -PANT40TA PO; -SERT50TA PO; -TRAZ50TA35 PO
[2019-12-22 09:36] LABS: Hematocrit (blood only) 39.6 % (37-47); Hemoglobin 13.9 g/dL (12.0-16.0); Mean Corpuscular Hemoglobin 32.1 pg (25-34); Mean Corpuscular Volume 91.5 fL (80-100); Mean Platelet Volume 9.7 fL (7.4-10.4); Platelet Count 219 K/uL (130-400); RDW Coefficient of Variation 12.2 % (11.5-14.5); RDW Standard Deviation 41.1 fL (36.4-46.3); Red Blood Count 4.33 M/uL (4.2-5.4); White Blood Count 5.81 K/uL (4.8-10.8)
[2019-12-22 09:39] LABS: Mean Corpuscular Hgb Conc 35.1 g/dL (32-36)
--- NOTE | 2019-12-22 09:48 | Nuclear Medicine Report ---
NM sentinel node inject only CLINICAL HISTORY: C50.919 Malignant neoplasm of unspecified site of unspeci... Right breast carcinoma . COMPARISON STUDY: No previous studies for comparison. FINDINGS: A timeout was performed. The right periareolar region was prepped in a sterile fashion. The skin was anesthetized with ethyl c hloride. Five periareolar intradermal injections were performed utilizing a total dose of 0.4 mCi technetium 9 9m Lymphoseek. The patient was sent to the operating room for intraoperative localization. IMPRESSION: Right breast lymphoscintigraphy was performed. ACT 112: Negative or not required by law. Electronically signed by: Delbert Berman M.D. 12/22/2019 9:47 AM
[2019-12-22 09:57] LABS: BUN Creatinine Ratio 15.7 (10-20); Calcium 9.3 mg/dl (8.5-10.1); Creatinine Clr Calc Pharmacy 82.7 ml/min; Est GFR (Non-African American) 92.3; Potassium 4.2 mmol/L (3.5-5.1)
[2019-12-22] MEDS ORDERED: PROPOFOL IV EMULSION 10 MG/ML 20 ML VIAL IV ONE (10:23)
[2019-12-22] MEDS ORDERED: DEXAMETHASONE SOD INJ 4 MG/ML VIAL ONE (10:23)
[2019-12-22] MEDS ORDERED: ONDANSETRON INJ 2 MG/ML 2 ML VIAL ONE (10:23)
[2019-12-22] MEDS ORDERED: LIDOCAINE HCL 2% 2 ML VIAL/AMP(20MG/ML) INFIL ONE (10:23)
[2019-12-22] MEDS ORDERED: fentaNYL citrate 100 MCG/2 ML VIAL ONE ×2 (10:24→15:35)
[2019-12-22] MEDS ORDERED: MIDAZOLAM HCL 1 MG/ML 2ML VIAL ONE (10:24)
--- NOTE | 2019-12-22 11:41 | History & Physical Bridge Note ---
Date of Service December 22, 2019 History & Physical Bridge Note I have examined the patient, reviewed the History & Physical and in the interval since the performance of the History & Physical I have noted the following changes of clinical significance: no changes noted
[2019-12-22] MEDS ORDERED: BUPIVACAINE 0.5 % 5 MG/1 ML MPF 30ML VIAL ONE (12:05)
[2019-12-22] MEDS ORDERED: METHYLENE BLUE 0.5% 10 ML VIAL ONE (12:05)
[2019-12-22] MEDS ORDERED: CLINDAMYCIN 600 MG/54 ML D5W IV ONE (12:07)
[2019-12-22] MEDS ORDERED: ATROPINE SULFATE 0.1 MG/ML 10ML SYR IV PRN (13:39)
[2019-12-22] MEDS ORDERED: ePHEDrine sulfate 50 MG/ML AMP IV PRN (13:39)
--- NOTE | 2019-12-22 13:42 | Post Operative Brief Note ---
PG Immediate Post Op with CF Date of Surgery December 22, 2019 Pre & Post Diagnosis Operation Date: 12/22/19 11:10 Pre-Op Diagnosis: Right Breast Cancer Post-Op Diagnosis: Right Breast Cancer I identified the patient and participated in the time-out.: Yes Procedure Operation Date: 12/22/19 11:10 Actual Procedures p Right Breast Lumpectomy with Needle Localization and with Right [place] Lymph Node Biopsy(Right) - Robbin Barrera MD, FACS Surgeon Robbin Barrera MD, FACS Bleaching Supervisor Jovana Kuo Estimated Blood Loss 20 Findings Consistent with Post-Op Diagnosis Specimens Specimen Description: Frozen 1. Right [place] Lymph Node. Fresh A. Right Breast Tissue: Needle is Lateral, Short Silk Medial, Long Silks Inf erior. Out of body 1310. B. Additional Inferior Tissue: Short Silk Medial, Methylene Blue New Margins. Out of body 1315. C. Additional Superior Breast Tissue: Methylene Blue New Margins. Out of body 1320.
[2019-12-22] MEDS ORDERED: ACETAMINOPHEN 1,000 MG/100 ML VIAL IV ONE (13:43)
[2019-12-22] MEDS: fentaNYL citrate 100 MCG/2 ML VIAL IV PRN ×3 (13:58→15:05)
--- NOTE | 2019-12-22 14:02 | Operative Report (OR) ---
DATE OF OPERATION: 12/22/2019 NAME OF OPERATION: Needle localization, right lumpectomy with sentinel lymph node biopsy. PREOPERATIVE DIAGNOSIS: Right breast cancer. POSTOPERATIVE DIAGNOSIS: Same. STAFF SURGEON: Robbin Barrera M.D. TRANSMITTER SUPERVISOR: Helen Kuo. ANESTHESIA: General. DESCRIPTION OF PROCEDURE: The patient was brought in the operating room and placed on the operating table in supine position. Her right breast was prepped and draped in usual fashion as well as the axilla. She had a needle in the lateral right breast. My administrative assistant office manager helped with prepping, draping, excision of the lymph node, breast tissue and closure of the wounds. Initially, incision was made in the right axilla using 0.5% plain Marcaine to anesthetize skin and subcutaneous tissue. Dissection was carried down using Neoprobe identifying the sentinel node. It was sent for frozen section which was negative. During the frozen section, lumpectomy was performed, excising the tissue around the needle through a separate incision down to the muscle. The initial specimen was right breast tissue needle lateral, short silk suture medial, long silk suture inferior. It appeared that the dense tissue was inferior and mostly fatty tissue superior. The tissue was placed into the Faxitron, sent to Dr. Orellana. The clip was in the center. I did take additional tissue inferiorly which included dense tissue. This was marked with a short silk suture medial, methylene blue new margin. I took additional superior tissue which was mostly just adipose tissue with methylene blue as the new margin. Clips were placed on the muscle at the area of the mass. Wounds were irrigated. Deep tissue reapproximated using 2-0 plain suture. The axilla was closed reapproximating the skin using 5-0 Prolene suture. The breast tissue closed using subcuticular 4-0 Monocryl with Steri-Strips. Dressings applied and patient transferred to recovery room in stable condition. I attest to the content of the Intraoperative Record and any orders documented therein. Any exception s are noted below.
--- NOTE | 2019-12-22 14:34 | Anesthesiology Progress Note ---
Date of Service December 22, 2019 Anesthesia Post Procedure Vital Signs Vital Signs: Temp Pulse Pulse Resp BP BP Pulse Ox 12/22/19 14:25 97.5 F L 74 14 128/86 95 12/22/19 14:15 71 14 137/88 100 12/22/19 14:05 74 14 141/90 H 100 12/22/19 13:55 96.8 F L 85 19 140/92 98 12/22/19 09:24 98.1 F 66 18 141/86 H 99 Pain Intensity Right Lateral Breast: Pain Intensity: 5 Transfer of Care Handoff Completed per policy Notes Mental Status: alert / awake / arousable and participated in evaluation Patient Amnestic to Procedure: Yes Nausea / Vomiting: adequately controlled Pain: adequately controlled Airway Patency, RR, SpO2: stable & adequate BP & HR: stable & adequate Hydration State: stable & adequate Anesthetic Complications: no major complications apparent and Pt Satisfied with anesthetic care
[2019-12-22] MEDS ORDERED: HYDROCODONE/ACETAMOPHEN 5/325MG TAB PO PRN (15:29)
[2019-12-22] MEDS ORDERED: TRAZODONE HCL 50 MG TAB PO PRN (15:29)
[2019-12-22] MEDS ORDERED: PROMETHAZINE HCL 25 MG in SODIUM CHLORIDE 0.9% 50 ML IV PRN (15:29)
[2019-12-22] MEDS ORDERED: ONDANSETRON INJ 2 MG/ML 2 ML VIAL IV PRN (15:29)
[2019-12-22] MEDS ORDERED: MoRPHine SULFATE 4 MG/ML 1 ML CARP\\VIAL IV PRN (15:29)
[2019-12-22] MEDS ORDERED: PROMETHAZINE HCL 12.5 MG in SODIUM CHLORIDE 0.9% 50 ML IV PRN (15:29)
[2019-12-22] MEDS ORDERED: MoRPHine SULFATE 2 MG/ML CARP IV PRN (15:29)
[2019-12-22] MEDS ORDERED: ACETAMINOPHEN 325 MG TAB PO PRN (15:29)
[2019-12-22] MEDS ORDERED: SODIUM CHLORIDE 0.9% 1000ML 1,000 ML IV SCH (16:00)
[2019-12-22] MEDS: HYDROCODONE/ACETAMOPHEN 5/325MG TAB PO PRN (18:09)
[2019-12-22] MEDS: CLINDAMYCIN 600 MG in DEXTROSE 5% 50 ML IV SCH (21:59)
[2019-12-23] MEDS: HYDROCODONE/ACETAMOPHEN 5/325MG TAB PO PRN ×2 (00:10→08:14)
[2019-12-23] MEDS: CLINDAMYCIN 600 MG in DEXTROSE 5% 50 ML IV SCH (05:29)
--- NOTE | 2019-12-23 08:18 | Discharge Summary (DS) ---
PRINCIPAL DIAGNOSIS: Right breast cancer. PROCEDURES: The patient underwent needle localization right lumpectomy with sentinel lymph node biopsy. HISTORY OF PRESENT ILLNESS: The patient is a 49-year-old female with biopsy proven right breast cancer for definitive surgery. She was brought into the hospital on 12/22/2019 where she underwent right lumpectomy with sentinel lymph node biopsy, which she tolerated very well. She has done well overnight. She is doing well this morning. Her dressing is dry and intact. She is ready for discharge home. She will be discharged home today and followed in the surgical clinic within 1-2 weeks.
[2019-12-23] MEDS ORDERED: SERTRALINE HCL 50 MG TABLET PO SCH (09:00)
[2019-12-23] MEDS ORDERED: lisinopriL 5 MG TAB PO SCH (09:00)
--- NOTE | 2019-12-25 07:48 | Mammography Report ---
NEEDLE LOCALIZATION RIGHT BREAST: 12/22/2019 CLINICAL HISTORY: Recent biopsy-proven invasive ductal carcinoma in the 10:00 right breast. Patient p resents for preoperative needle and wire localization prior to lumpectomy. COMPARISON: Comparison is made to exams dated: 12/05/2019 breast MRI, 11/19/2019 mammogram, 11/19/2019 ultrasound biopsy, 11/19/2019 ultrasound, 11/05/2019 mammogram, and 12/26/2017 mammogram - [facility]. PATIENT CONSENT: The risks of the procedure were explained to the patient and informed consent was ob tained both verbally and in writing. Specific risks include: Bleeding, infection, puncture of adjace nt structure, nontarget localization, medication reaction, dizziness/lightheadedness. A timeout was performed and the right breast was confirmed as the site for preoperative localization. PROCEDURE DESCRIPTION: Targeted ultrasound was performed in the 10:00 right breast, 7 cm from the nip ple in the area of previously biopsy-proven carcinoma. The ill-defined hypoechoic taller than wide s hadowing mass is again identified and amenable to ultrasound-guided localization. The skin of the [facility] upper outer breast was cleansed with Betadine and sterile drapes were placed. 1% buffered lidoca ine without epinephrine was administered as local anesthesia. A 5 cm Kiran 2 needle and wire devontei majo was inserted into the right 10:00 breast, through the mass and locked in place. The patient t olerated the procedure well and there was no immediate complication. Post procedure right CC and ML 2D and tomosynthesis images were performed, which demonstrate the 5 cm Kiran needle/wire combination with in the right 10:00 posterior breast. The biopsy marker is 1 mm posterior to the needle at the level of the proximal ramone. The entire procedure including approach and needle length were discussed with the operating surgeon prior to surgery. [facility] satisfactory condition and was escorted to the main hospital operating room. A specimen radiograph was obtained which demonstrates the localizing needle, ribbon-shaped biopsy mar ker and spiculated mass centrally within the specimen, compatible with successful preoperative locali zation and subsequent surgical excision. Final surgical pathology is pending. IMPRESSION: NEEDLE LOCALIZATION Status post preoperative needle and wire localization for biopsy-proven carcinoma in the right 10:00 breast. The imaged specimen includes the intended abnormalities. Final surgical pathology is pendyovanny Lyon Esteban M.D. ay/:12/22/2019 14:18:27 Internal Medicine Doctor: Lore Sanon, [facility]
== END 2019-12-23 10:20 | disposition home or self-care (01) ==
LOC: 3E 07:32 → ASU 07:32